=== PATIENT | female | born 1940 | race Caucasian/White ===

== ENCOUNTER 2022-03-02 06:01 | Inpatient (IN) | payer OTHER ==
[2022-02-27 13:43] LABS: BASOPHILS % (AUTO) 0.4 % (0.0-5.0); EOSINOPHILS % (AUTO) 1.6 % (0.0-8.0); HEMATOCRIT 38.4 % (36-48); LYMPHOCYTES % (AUTO) 18.5 % (21.0-51.0); MEAN CORPUSCULAR HEMOGLOBIN 29.9 pg (27.0-33.0); MEAN CORPUSCULAR HGB CONC 33.1 g/dL (32.0-36.0); MEAN CORPUSCULAR VOLUME 90.4 fL (79-99); MONOCYTES % (AUTO) 7.3 % (3.0-13.0); NEUTROPHILS % (AUTO) 71.9 % (40.0-77.0); PLATELET COUNT (AUTO) 222 K/uL (130-400); RED BLOOD CELL COUNT(AUTO) 4.25 MIL/uL (4.00-5.50); RED CELL DISTRIBUTION WIDTH 12.2 % (11.0-15.5); WHITE BLOOD COUNT (AUTO) 6.7 K/uL (4.8-10.8)
[2022-02-27 13:55] LABS: INR 1.04 (0.85-1.15); PROTHROMBIN TIME 11.3 SEC (9.6-11.6)
[2022-02-27 13:57] LABS: CREATININE 1.1 mg/dL (0.5-1.5); PARTIAL THROMBOPLASTIN TIME 27.9 SEC (26.3-35.5); POTASSIUM 4.3 mmol/L (3.5-5.1)
[2022-03-02] VITALS (30 sets, daily range): BP systolic 99–155; BP diastolic 55–94
[~2022-03-02] VITALS: Ht 157.5 cm; Wt 68.3 kg
[~2022-03-02 06:01] MED LIST: AMLO-257 PO; APIX5TAB PO; ASCO500C18 PO; ATEN50TA PO; CALCIUM ZINC PO; CORICIDIN PO; DENO60DI SQ; GABA-529 PO; GLUC1TAB22 PO; IBUP1TAB71 PO; LORA0.5T83 PO; LOSA100T58 PO; MULT-1283 PO; OMEG-116 PO; PARO-37 PO; PROP10DR5 OU; [UNRECOGNIZED DRUG - OTHER] PO; flax seed oil PO; fluticasone NASAL; prevagen PO; vitamin d PO
[2022-03-02] MEDS ORDERED: LIDOCAINE HCL 2% VISCOUS 15 ML UDCUP ONE (06:07)
[2022-03-02] MEDS ORDERED: FLUMAZENIL 0.1MG/1ML 5ML VIAL IV ONE (06:07)
[2022-03-02] MEDS ORDERED: NALOXONE HCL 0.4 MG/1 ML ML ONE (06:08)
[2022-03-02] MEDS ORDERED: 0.9%NACL 1000ML 1,000 ML IV ONE (06:09)
[2022-03-02] MEDS ORDERED: FENTANYL CITRATE PF 50 MCG/1 ML 2ML VIAL ONE (06:09)
[2022-03-02] MEDS ORDERED: MIDAZOLAM HCL 1 MG/ML 2ML VIAL ONE (06:09)
[2022-03-02] MEDS ORDERED: AMIODARONE 900MG VIAL 360 MG in DEXTROSE 5%-WATER 200 ML IV SCH (08:30)
[2022-03-02] MEDS: POTASSIUM CHLORIDE 10MEQ SR TAB PO SCH (09:00)
[2022-03-02] MEDS: APIXABAN 5 MG TABLET PO SCH ×2 (09:00→22:10)
[2022-03-02] MEDS: FUROSEMIDE 20MG VIAL IV SCH (11:01)
[2022-03-02] MEDS ORDERED: AMIODARONE 900MG VIAL 540 MG in DEXTROSE 5%-WATER 300 ML IV PRN (18:00)
[2022-03-02] MEDS ORDERED: FLUTICASONE PROPIONATE 50MCG/SPRAY 16 GM BOTTLE NS PRN (18:30)
[2022-03-02 18:43] LABS: BASOPHILS % (AUTO) 0.5 % (0.0-5.0); HEMATOCRIT 33.4 % (36-48); LYMPHOCYTES % (AUTO) 25.3 % (21.0-51.0); MEAN CORPUSCULAR HGB CONC 33.8 g/dL (32.0-36.0); MEAN CORPUSCULAR VOLUME 88.6 fL (79-99); NEUTROPHILS % (AUTO) 59.9 % (40.0-77.0); PLATELET COUNT (AUTO) 225 K/uL (130-400); RED BLOOD CELL COUNT(AUTO) 3.77 MIL/uL (4.00-5.50); RED CELL DISTRIBUTION WIDTH 12.3 % (11.0-15.5); WHITE BLOOD COUNT (AUTO) 6.2 K/uL (4.8-10.8)
[2022-03-02 18:52] LABS: POTASSIUM 4.4 mmol/L (3.5-5.1)
[2022-03-02 18:58] LABS: CHOLESTEROL 187 mg/dL (<200); HDL CHOLESTEROL 56 mg/dL (35-85); LDL DIRECT 101 mg/dL (0-99); TRIGLYCERIDES 85 mg/dL (30-200)
[2022-03-02 19:01] LABS: ALBUMIN 3.7 g/dL (3.5-5.0); BILIRUBIN,TOTAL 0.2 mg/dL (0.2-1.0); MAGNESIUM 1.7 mg/dL (1.80-2.40); TOTAL PROTEIN, SERUM 7.3 g/dL (6.0-8.3)
[2022-03-02] MEDS ORDERED: MAGNESIUM 2GM PREMIX 50ML 50 ML IV SCH (19:30)
[2022-03-02] MEDS: PEG OU SCH (21:00)
[2022-03-02] MEDS: VITAMIN D PO SCH (21:00)
[2022-03-02] MEDS: PROPYLENE GLYCOL OU SCH (21:00)
[2022-03-02] MEDS: IBUPROFEN PO SCH (21:00)
[2022-03-02] MEDS: DIPHENHYDRAMINE CIT PO SCH (21:00)
[2022-03-02] MEDS: LORAZEPAM 0.5 MG TABLET PO SCH (22:10)
[2022-03-02] MEDS: FISH OIL 1000 MG/CAP PO SCH (22:10)
[2022-03-02] MEDS: GABAPENTIN 100 MG CAPSULE PO SCH (22:11)
[2022-03-02] MEDS: GLUCOSAMINE-CHONDROITIN PO SCH (22:11)
[2022-03-03 03:31] VITALS: BP 115/60
[2022-03-03 05:50] LABS: BASOPHILS % (AUTO) 0.5 % (0.0-5.0); EOSINOPHILS % (AUTO) 3.8 % (0.0-8.0); HEMATOCRIT 33.5 % (36-48); LYMPHOCYTES % (AUTO) 27.3 % (21.0-51.0); MEAN CORPUSCULAR HEMOGLOBIN 29.7 pg (27.0-33.0); MEAN CORPUSCULAR HGB CONC 33.7 g/dL (32.0-36.0); MEAN CORPUSCULAR VOLUME 87.9 fL (79-99); MONOCYTES % (AUTO) 10.1 % (3.0-13.0); NEUTROPHILS % (AUTO) 58.1 % (40.0-77.0); PLATELET COUNT (AUTO) 204 K/uL (130-400); RED BLOOD CELL COUNT(AUTO) 3.81 MIL/uL (4.00-5.50); WHITE BLOOD COUNT (AUTO) 6.1 K/uL (4.8-10.8)
[2022-03-03 06:36] LABS: ALBUMIN 3.5 g/dL (3.5-5.0); BILIRUBIN,TOTAL 0.4 mg/dL (0.2-1.0); CREATININE 1.1 mg/dL (0.5-1.5); POTASSIUM 4.5 mmol/L (3.5-5.1); TOTAL PROTEIN, SERUM 6.8 g/dL (6.0-8.3)
[2022-03-03 07:00] VITALS: BP 127/71
[2022-03-03] MEDS: GLUCOSAMINE-CHONDROITIN PO SCH ×2 (09:00→21:49)
[2022-03-03] MEDS: VITAMIN D PO SCH ×2 (09:00→21:00)
[2022-03-03] MEDS: ASCORBIC ACID 500 MG TAB PO SCH (09:00)
[2022-03-03] MEDS: PREVAGEN 10 MG PO SCH (09:00)
[2022-03-03] MEDS: GABAPENTIN 100 MG CAPSULE PO SCH ×2 (09:00→21:49)
[2022-03-03] MEDS: MULTIVITAMIN TABLET PO SCH (09:00)
[2022-03-03] MEDS: APIXABAN 5 MG TABLET PO SCH ×2 (09:00→21:48)
[2022-03-03] MEDS: PAROXETINE HCL 20 MG TABLET PO SCH (09:00)
[2022-03-03] MEDS: MULTIVITAMIN WITH MINERALS PO SCH (09:00)
[2022-03-03] MEDS: CALCIUM ZINC PO SCH (09:00)
[2022-03-03] MEDS: FISH OIL 1000 MG/CAP PO SCH ×2 (09:00→21:48)
[2022-03-03] MEDS: POTASSIUM CHLORIDE 10MEQ SR TAB PO SCH (09:00)
[2022-03-03] MEDS: FUROSEMIDE 20MG VIAL IV SCH (10:49)
[2022-03-03 11:00] VITALS: BP 144/59
[2022-03-03] MEDS ORDERED: 0.9%NACL 1000ML 1,000 ML IV ONE (11:59)
[2022-03-03] MEDS ORDERED: SUCCINYLCHOLINE 200MG/10ML SYR ONE (12:56)
[2022-03-03] MEDS ORDERED: PROPOFOL 10 MG/ML 20ML VIAL IV ONE (12:56)
[2022-03-03] MEDS: LOSARTAN 25 MG TABLET PO SCH (15:20)
[2022-03-03 16:00] VITALS: BP 148/53
[2022-03-03 19:06] VITALS: BP 117/63
[2022-03-03] MEDS: PEG OU SCH (21:00)
[2022-03-03] MEDS: IBUPROFEN PO SCH (21:00)
[2022-03-03] MEDS: DIPHENHYDRAMINE CIT PO SCH (21:00)
[2022-03-03] MEDS: PROPYLENE GLYCOL OU SCH (21:00)
[2022-03-03] MEDS: LORAZEPAM 0.5 MG TABLET PO SCH (21:48)
[2022-03-04 00:06] VITALS: BP 100/50
[2022-03-04 03:06] VITALS: BP 128/55
[2022-03-04 08:23] VITALS: BP 100/53
[2022-03-04] MEDS ORDERED: FUROSEMIDE 20 MG TABLET PO SCH (09:00)
[2022-03-04] MEDS: PREVAGEN 10 MG PO SCH (09:00)
[2022-03-04] MEDS: VITAMIN D PO SCH (09:00)
[2022-03-04] MEDS: MULTIVITAMIN WITH MINERALS PO SCH (09:00)
[2022-03-04] MEDS: CALCIUM ZINC PO SCH (09:00)
[2022-03-04] MEDS: LOSARTAN 25 MG TABLET PO SCH (09:52)
[2022-03-04] MEDS: MULTIVITAMIN TABLET PO SCH (09:52)
[2022-03-04] MEDS: GLUCOSAMINE-CHONDROITIN PO SCH (09:52)
[2022-03-04] MEDS: ASCORBIC ACID 500 MG TAB PO SCH (09:52)
[2022-03-04] MEDS: FISH OIL 1000 MG/CAP PO SCH (09:52)
[2022-03-04] MEDS: APIXABAN 5 MG TABLET PO SCH (09:52)
[2022-03-04] MEDS: PAROXETINE HCL 20 MG TABLET PO SCH (09:53)
[2022-03-04] MEDS: POTASSIUM CHLORIDE 10MEQ SR TAB PO SCH (09:53)
[2022-03-04] MEDS: GABAPENTIN 100 MG CAPSULE PO SCH (09:54)
[2022-03-04] MEDS ORDERED: LOSA25TA41 PO (11:51)
[2022-03-04] MEDS ORDERED: FURO20TA6 PO (11:53)
[2022-03-04] MEDS ORDERED: AMIO200T68 PO (11:53)
[2022-03-04] MEDS ORDERED: ATEN25TA PO (11:53)
== END 2022-03-04 12:40 | disposition home or self-care (01) | DRG 309 ==
LOC: DAH 06:01 → DAHIP 06:02 → DAH 06:02 → 2DH 10:25
PROVIDERS: ADMIT Internal Medicine; ATTEND Internal Medicine
PROC: B24BZZ4 Ultrasonography of Heart with Aorta, Transesophageal (ICD-10-PCS; 2022-03-02)
PROC: 5A2204Z Restoration of Cardiac Rhythm, Single (ICD-10-PCS; principal; 2022-03-03)
DX: I48.0 Paroxysmal atrial fibrillation (principal); E87.1 Hypo-osmolality and hyponatremia; Z88.8 Allergy status to other drugs, medicaments and biological substances; I10 Essential (primary) hypertension; E78.5 Hyperlipidemia, unspecified; E83.42 Hypomagnesemia; E87.70 Fluid overload, unspecified; G62.9 Polyneuropathy, unspecified; M81.0 Age-related osteoporosis without current pathological fracture; Z90.710 Acquired absence of both cervix and uterus; Z79.01 Long term (current) use of anticoagulants; M79.10 Myalgia, unspecified site; I08.1 Rheumatic disorders of both mitral and tricuspid valves; Z90.13 Acquired absence of bilateral breasts and nipples; Z90.49 Acquired absence of other specified parts of digestive tract; F41.9 Anxiety disorder, unspecified
CPT/HCPCS: 36415; 80048; 80053; 80061; 83735; 85025; 85610; 85730; 93005; 93312; 96374; 99152; A4606; G0378; J0282; J0330; J1940; J2250; J2310; J2704; J3010; J3475; J3490; J7030; J7060